=== PATIENT | female | born 1940 | race Caucasian/White ===

== ENCOUNTER 2025-02-25 11:07 | Outpatient (RCR) | payer MEDICARE, SELFPAY ==
--- NOTE | 2025-02-25 13:22 | OPREHPOC ---
Outpatient Therapy Plan of Care This is a Multidisciplinary Plan of Care that may contain components documented by all disciplines (PT, OT, and ST.) PT Problem 1 PT Problem #1 Knowledge Deficit PT Goal 1 Goal / Goal Update 1. independent and compliant with HEP Target Visit 6 PT Problem 2 PT Problem #2 Pain PT Goal 1 Goal / Goal Update 1. decrease pain at worst to 2/10 or less in the L hip and buttock Target Visit 12 PT Problem 3 PT Problem #3 Impaired Strength PT Goal 1 Goal / Goal Update 1. 4+/5 bilateral hip strength Target Visit 12 PT Problem 4 PT Problem #4 Impaired Gait PT Goal 1 Goal / Goal Update 1. patient to ambulate with normal gait mechanics on level flat surface 2. patient to complete 6 minute walk test without AD and without rest for 800ft or more Target Visit 12 PT Problem 5 PT Problem #5 Impaired Functional Mobility PT Goal 1 Goal / Goal Update 1. LEFS to display 30% or less functional deficits 2. patient to tolerate laying on L side to be able to sleep through the night Target Visit 12
--- NOTE | 2025-02-25 13:22 | PTOPEVAL1 ---
Assessment and note entered by JT File, PT Evaluation Information Assessment Status Evaluation ICD-10 Condition Codes (PT) Pain in left hip M25.552 Other ICD-10 Condition Codes ( Z96.642; M70.62 PT) Onset 01/24/25 Subjective Information patient reports she went to [facility] in december. she reports it was a lot of walking, and she did not take the right shoes. she reports about 2 weeks after this, she began having pain in the L hip. 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 she reports she has increased pain in the L hip with walking and laying on the L side. she reports the pain is on the side of the L hip and the buttock. she reports she was told it is likely bursitis from the increased walking. she reports she was not given any new medications or injections. Reported Pain Level Pain Score 0: Self Report Assessment PT Clinical Summary mrs. meredith is an 84 yo woman who presents to skilled PT services for evaluation and treatment of L hip pain. she presents today with signs and symptoms consistent with L greater trochanteric bursitis, but L lumbar radiculopathy is a potential differential diagnosis. she displays pain with palpation, decreased strength, decreased rom, and abnormal gait mechanics. continued skilled PT is indicated to improve her objective/ functional deficits and progress towards a return to her prior level functional activity performance and quality of life. Plan of Care Interventions Electrical Stimulation,Gait Training,Hot Pack/Cold Pack,Manual Therapy,Neuro Re-education,Patient/ Caregiver Education,Therapeutic Activities, Therapeutic Exercise PT Services Indicated Yes Treatment Frequency and 3x weekly for 12 visits Duration These treatments will address the objective and functional deficits as defined above. The patient will be advanced safely and appropriately in order for the patient to progress towards his/her prior level of function. Additional exercises will be introduced and as well as a comprehensive home exercise program upon discharge, if needed, ?to ensure carryover of functional gains achieved in the clinic. This treatment plan has been reviewed and agreement upon by the patient.
--- NOTE | 2025-03-25 16:09 | OPREHPOC ---
Outpatient Therapy Plan of Care This is a Multidisciplinary Plan of Care that may contain components documented by all disciplines (PT, OT, and ST.) PT Problem 1 PT Problem #1 Knowledge Deficit PT Goal 1 Goal / Goal Update 1. independent and compliant with HEP Target Visit 6 Progress Met PT Problem 2 PT Problem #2 Pain PT Goal 1 Goal / Goal Update 1. decrease pain at worst to 2/10 or less in the L hip and buttock Target Visit 12 Progress Not Met PT Problem 3 PT Problem #3 Impaired Strength PT Goal 1 Goal / Goal Update 1. 4+/5 bilateral hip strength Target Visit 12 Progress Not Met PT Problem 4 PT Problem #4 Impaired Gait PT Goal 1 Goal / Goal Update 1. patient to ambulate with normal gait mechanics on level flat surface 2. patient to complete 6 minute walk test without AD and without rest for 800ft or more Target Visit 12 Progress Not Met PT Problem 5 PT Problem #5 Impaired Functional Mobility PT Goal 1 Goal / Goal Update 1. LEFS to display 30% or less functional deficits 2. patient to tolerate laying on L side to be able to sleep through the night Target Visit 12 Progress Not Met
--- NOTE | 2025-03-25 16:09 | PTOPPROG ---
Assessment and note entered by Yenny Brooks, PT Evaluation Information Assessment Status Progress ICD-10 Condition Codes (PT) Pain in left hip M25.552 Other ICD-10 Condition Codes ( Z96.642; M70.62 PT) Onset 01/24/25 Subjective Information Jacqueline reports her pain is slightly better than when she started therapy but that it continues to vary in terms of severity and location. Today she notes pain primarily in the back rather than the hip. Assessment PT Clinical Summary Mrs. Woodson has attended 10 total skilled PT visits addressing L hip bursitis. Her pain tends to vary in severity and location and today she was having more low back pain than hip pain. Since beginning therapy she has made slight improvements in her hip strength and notes less disability on LEFS however still demonstrates difficulty with walking long distances due to pain. She will benefit from continued skilled PT to continue making progress toward goals. Plan of Care Interventions Electrical Stimulation,Gait Training,Hot Pack/Cold Pack,Manual Therapy,Neuro Re-education,Patient/ Caregiver Education,Therapeutic Activities, Therapeutic Exercise PT Services Indicated Yes Treatment Frequency and Continue per original POC Duration These treatments will address the objective and functional deficits as defined above. The patient will be advanced safely and appropriately in order for the patient to progress towards his/her prior level of function. Additional exercises will be introduced and as well as a comprehensive home exercise program upon discharge, if needed, ?to ensure carryover of functional gains achieved in the clinic. This treatment plan has been reviewed and agreement upon by the patient.
--- NOTE | 2025-05-05 08:31 | OPREHPOC ---
Outpatient Therapy Plan of Care This is a Multidisciplinary Plan of Care that may contain components documented by all disciplines (PT, OT, and ST.) PT Problem 1 PT Problem #1 Knowledge Deficit PT Goal 1 Goal / Goal Update 1. independent and compliant with HEP Target Visit 6 Progress Met PT Problem 2 PT Problem #2 Pain PT Goal 1 Goal / Goal Update 1. decrease pain at worst to 2/10 or less in the L hip and buttock Target Visit 16 Progress Not Met PT Problem 3 PT Problem #3 Impaired Strength PT Goal 1 Goal / Goal Update 1. 4+/5 bilateral hip strength Target Visit 16 Progress Not Met PT Problem 4 PT Problem #4 Impaired Gait PT Goal 1 Goal / Goal Update 1. patient to ambulate with normal gait mechanics on level flat surface 2. patient to complete 6 minute walk test without AD and without rest for 800ft or more. met Target Visit 16 Progress Partially Met PT Problem 5 PT Problem #5 Impaired Functional Mobility PT Goal 1 Goal / Goal Update 1. LEFS to display 30% or less functional deficits 2. patient to tolerate laying on L side to be able to sleep through the night Target Visit 16 Progress Not Met
--- NOTE | 2025-05-05 08:32 | PTOPREEVAL ---
Assessment and note entered by JT File, PT Evaluation Information Assessment Status Re-evaluation ICD-10 Condition Codes (PT) Pain in left hip M25.552 Other ICD-10 Condition Codes ( Z96.642; M70.62 PT) Onset 01/24/25 Subjective Information patient reports she is a little better, but about the same since her last progress note. she reports it is better since her initial evaluation, but her pain will still come and go in severity depending on the level of her walking. she reports she still has pain to the L hip/buttock and some in the lower back. patient reports she is still unable to lay on the L side due to pain. Assessment PT Clinical Summary mrs. meredith presents to skilled PT for her 12th skilled therapy visit. she presents today with continued pain in the L hip/buttock and some in the lower back. she has met HEP goal, and partial progress of ambulation goal. however, she lacks achievement of her goals in hip strength, pain reduction, and normal ambulation mechanics. given her continued deificts, patient would benefit from continued skilled PT. however, we will reduce frequency to begin to transition to HEP only for anticipated DC. Plan of Care Interventions Electrical Stimulation,Gait Training,Hot Pack/Cold Pack,Manual Therapy,Neuro Re-education,Patient/ Caregiver Education,Therapeutic Activities, Therapeutic Exercise PT Services Indicated Yes Treatment Frequency and continue skilled PT 1x weekly for 4 more visits Duration These treatments will address the objective and functional deficits as defined above. The patient will be advanced safely and appropriately in order for the patient to progress towards his/her prior level of function. Additional exercises will be introduced and as well as a comprehensive home exercise program upon discharge, if needed, ?to ensure carryover of functional gains achieved in the clinic. This treatment plan has been reviewed and agreement upon by the patient.
--- NOTE | 2025-06-18 13:39 | PCPTNOTE ---
Mrs. Woodson attended 12 skilled PT visits for L hip pain due to trochanteric bursitis and a history of R DEBORAH. She was re-evaluated on 04/01/25 and was agreeable to continuing skilled PT 1x/week for 4 additional visits, however she has not attended therapy since that re-evaluation. From chart review pt had been going better with therapy. We will discharge her this date from skilled PT.
== END 2025-05-26 23:59 | disposition home or self-care (01) ==
LOC: CHSPT 11:07
DX: M70.62 Trochanteric bursitis, left hip (principal); Z96.642 Presence of left artificial hip joint
CPT/HCPCS: 97110; 97140; 97150; 97161; 97530; 97750